=== PATIENT | male | born 1970 | race American Indian/Alaskan Native ===

== ENCOUNTER 2016-06-16 15:57 | Emergency (ER) | payer SELFPAY ==
--- NOTE | 2016-06-16 16:13 | Emergency Department Report ---
Chief Complaint: Dental/Oral Stated Complaint: TOOTHACHE Time Seen by Provider: 06/16/16 16:11 - HPI History of Present Illness: 45 year old male with hx of uncontrolled htn presents with headache and dental pain. states that he gets a lot of throbbing headaches in the past and unsure if related to BP. states that tooth has been hurting for a few days. denies swelling, pus drainage, fever. - Exam Vital Signs: Vital Signs 06/16/16 15:59 Temperature 98.3 F Pulse Rate 80 Respiratory 18 Rate Blood Pressure 167/115 O2 Sat by Pulse 99 Oximetry Physical Exam: BP is elevated dental tenderness to right maxilla. no swelling, pus drainage patient has normal strength, normal gait and coordination,. MSE screening note: Focused history and physical exam performed. Due to findings the following was ordered: ED Disposition for MSE Condition: Stable
[2016-06-16] MEDS ORDERED: CATAPRES PO ONE (16:33)
[2016-06-16 16:36] LABS: Basophils % (Auto) 0.5 % (0.0-1.8); Eosinophils % (Auto) 2.3 % (0.0-4.3); Hemoglobin 13.3 gm/dl (11.8-15.2); Mean Corpuscular HGB Conc 33 % (32-34); Mean Corpuscular Hemoglobin 30 pg (28-32); Mean Corpuscular Volume 91 fl (84-94); Platelet Count 224 K/mm3 (140-440); Red Blood Count 4.41 M/mm3 (3.65-5.03); White Blood Count 6.6 K/mm3 (4.5-11.0)
[2016-06-16 16:47] LABS: INR 0.91 (0.87-1.13)
[2016-06-16 16:48] LABS: Partial Thromboplastin Time 28.7 Sec. (24.2-36.6)
[2016-06-16 17:00] LABS: Alanine Aminotransferase 19 units/L (7-56); Albumin 4.3 g/dL (3.9-5); Albumin/Globulin Ratio 1.5 %; Alkaline Phosphatase 69 units/L (35-129); Anion Gap 17 mmol/L; Bilirubin,Total < 0.2 mg/dL (0.1-1.2); Blood Urea Nitrogen 14 mg/dL (9-20); Carbon Dioxide 24 mmol/L (22-30); Chloride 99.7 mmol/L (98-107); Glucose 99 mg/dL (75-100); Potassium 3.9 mmol/L (3.6-5.0); Sodium 137 mmol/L (137-145); Total Protein 7.2 g/dL (6.3-8.2)
[2016-06-17] MEDS ORDERED: NORCO 5/325 PO ONE (01:31)
[2016-06-17] MEDS ORDERED: CLEOCIN PO ONE (01:31)
--- NOTE | 2016-06-17 01:36 | Emergency Department Report ---
Addendum entered and electronically signed by MAIRA THAKKAR PA 06/17/16 01 :56: pt requested refill on his amlodipine Original Note: ED ENT HPI - General Chief complaint: Dental/Oral Stated complaint: TOOTHACHE Source: patient Mode of arrival: Ambulatory Limitations: No Limitations - History of Present Illness Initial comments: 45-year-old male past medical history hypertension presents with complaint of one week of worsening right upper tooth pain, history of severe dental caries. Patient speaking in full sentences denies any shortness of breath denies any fever or chills denies any blood or pus drainage from mouth. States he knows he has had severe dental caries for some time but has not had it addressed by a dentist yet. MD complaint: tooth pain Onset/Timin -: week(s) Location: tooth # (4 upper premolar) Severity scale (0 -10): 9 Quality: sharp Consistency: constant Improves with: NSAID Worsens with: eating - Related Data Previous Rx's Medication Instructions Recorded Last Taken Type Ibuprofen [Motrin] 800 mg PO Q8HR PRN #60 tablet 03/24/15 Unknown Rx Metoclopramide [Reglan TAB] 10 mg PO ACHS #10 tablet 03/24/15 Unknown Rx traMADol [Ultram] 50 mg PO Q6HR PRN #14 tablet 03/24/15 Unknown Rx Benzocaine [Oral Pain Relief] 9.35 gm MM Q8H #1 gel..gram. 06/17/16 Unknown Rx Chlorhexidine Mouthwash [Peridex] 118 ml MM BID #1 bottle 06/17/16 Unknown Rx Clindamycin [Clindamycin CAP] 300 mg PO Q8H #30 cap 06/17/16 Unknown Rx HYDROcodone/APAP 5-325 [[place] 1 each PO Q8H PRN #15 tablet 06/17/16 Unknown Rx 5/325] Ibuprofen [Motrin] 800 mg PO Q8HR PRN #25 tablet 06/17/16 Unknown Rx Allergies Allergy/AdvReac Type Severity Reaction Status Date / Time No Known Allergies Allergy Unverified 03/24/15 08:53 ED Dental HPI - General Chief complaint: Dental/Oral Stated complaint: TOOTHACHE Source: patient Mode of arrival: Ambulatory Limitations: No Limitations - Related Data Previous Rx's Medication Instructions Recorded Last Taken Type Ibuprofen [Motrin] 800 mg PO Q8HR PRN #60 tablet 03/24/15 Unknown Rx Metoclopramide [Reglan TAB] 10 mg PO ACHS #10 tablet 03/24/15 Unknown Rx traMADol [Ultram] 50 mg PO Q6HR PRN #14 tablet 03/24/15 Unknown Rx Benzocaine [Oral Pain Relief] 9.35 gm MM Q8H #1 gel..gram. 06/17/16 Unknown Rx Chlorhexidine Mouthwash [Peridex] 118 ml MM BID #1 bottle 06/17/16 Unknown Rx Clindamycin [Clindamycin CAP] 300 mg PO Q8H #30 cap 06/17/16 Unknown Rx HYDROcodone/APAP 5-325 [[place] 1 each PO Q8H PRN #15 tablet 06/17/16 Unknown Rx 5/325] Ibuprofen [Motrin] 800 mg PO Q8HR PRN #25 tablet 06/17/16 Unknown Rx Allergies Allergy/AdvReac Type Severity Reaction Status Date / Time No Known Allergies Allergy Unverified 03/24/15 08:53 ED Review of Systems ROS: Stated complaint: TOOTHACHE Other details as noted in HPI Constitutional: denies: chills, fever Eyes: denies: eye pain, eye discharge, vision change ENT: dental pain. denies: ear pain, throat pain Respiratory: denies: cough, shortness of breath, wheezing Cardiovascular: denies: chest pain, palpitations Endocrine: no symptoms reported Gastrointestinal: denies: abdominal pain, nausea, diarrhea Genitourinary: denies: urgency, dysuria Musculoskeletal: denies: back pain, joint swelling, arthralgia Skin: denies: rash, lesions Neurological: denies: headache, weakness, paresthesias Psychiatric: denies: anxiety, depression Hematological/Lymphatic: denies: easy bleeding, easy bruising ED Past Medical Hx - Past Medical History Previous Medical History?: Yes Additional medical history: TMJ - Surgical History Past Surgical History?: Yes Additional Surgical History: Surgery for TMJ - Social History Smoking Status: Current Every Day Smoker Substance Use Type: Alcohol, Non Opiate Pain - Medications Home Medications: Home Medications Medication Instructions Recorded Confirmed Last Taken Type Ibuprofen [Motrin] 800 mg PO Q8HR PRN #60 tablet 03/24/15 Unknown Rx Metoclopramide [Reglan TAB] 10 mg PO ACHS #10 tablet 03/24/15 Unknown Rx traMADol [Ultram] 50 mg PO Q6HR PRN #14 tablet 03/24/15 Unknown Rx Benzocaine [Oral Pain Relief] 9.35 gm MM Q8H #1 gel..gram. 06/17/16 Unknown Rx Chlorhexidine Mouthwash [Peridex] 118 ml MM BID #1 bottle 06/17/16 Unknown Rx Clindamycin [Clindamycin CAP] 300 mg PO Q8H #30 cap 06/17/16 Unknown Rx HYDROcodone/APAP 5-325 [[place] 1 each PO Q8H PRN #15 tablet 06/17/16 Unknown Rx 5/325] Ibuprofen [Motrin] 800 mg PO Q8HR PRN #25 tablet 06/17/16 Unknown Rx ED Physical Exam - General Limitations: No Limitations General appearance: alert, in no apparent distress - Head Head exam: Present: atraumatic, normocephalic - Eye Eye exam: Present: normal appearance, PERRL, EOMI - ENT ENT exam: Present: mucous membranes moist - Expanded ENT Exam Expanded Teeth exam: Present: dental caries, fractured tooth #, dental tenderness #, other (tooth #4 upper right-sided premolar severe dental caries, overall periodontal disease) - Neck Neck exam: Present: normal inspection - Respiratory Respiratory exam: Present: normal lung sounds bilaterally. Absent: respiratory distress - Cardiovascular Cardiovascular Exam: Present: regular rate, normal rhythm. Absent: systolic murmur, diastolic murmur, rubs, gallop - GI/Abdominal GI/Abdominal exam: Present: soft, normal bowel sounds - Rectal Rectal exam: Present: deferred - Extremities Exam Extremities exam: Present: normal inspection - Back Exam Back exam: Present: normal inspection - Neurological Exam Neurological exam: Present: alert, oriented X3 - Psychiatric Psychiatric exam: Present: normal affect, normal mood - Skin Skin exam: Present: warm, dry, intact, normal color. Absent: rash ED Course Vital Signs 06/16/16 06/16/16 06/16/16 15:59 16:55 18:32 Temperature 98.3 F Pulse Rate 80 80 78 Respiratory 18 18 Rate Blood Pressure 167/115 167/115 153/106 O2 Sat by Pulse 99 Oximetry 06/16/16 06/16/16 20:06 22:54 Temperature 97.8 F 98.1 F Pulse Rate 76 81 Respiratory 18 18 Rate Blood Pressure 154/104 156/104 O2 Sat by Pulse 100 100 Oximetry ED Medical Decision Making - Lab Data Result diagrams: 06/16/16 16:20 06/16/16 16:20 - Medical Decision Making A/P: Dental caries, toothache 1-Peridex mouthwash, clindamycin by mouth x 10 days, [place], Motrin 2-I advised patient to follow up BERNADINE with a dentist as he will likely require root canal and or some instrumentation of multiple teeth especially right upper premolar region 3-no evidence of dental abscess at this time I advised patient to return to the ED if he experiences significant pus drainage or bleeding from mouth with difficulty swallowing or shortness of breath, severe fever or chills Critical care attestation.: If time is entered above; I have spent that time in minutes in the direct care of this critically ill patient, excluding procedure time. ED Disposition Clinical Impression: Dental caries Disposition: DISCHARGED TO HOME OR SELFCARE Is pt being admited?: No Does the pt Need Aspirin: No Condition: Stable Instructions: Toothache (ED), Dental Caries (ED) Prescriptions: Clindamycin [Clindamycin CAP] 300 mg PO Q8H #30 cap Ibuprofen [Motrin] 800 mg PO Q8HR PRN #25 tablet PRN Reason: Pain HYDROcodone/APAP 5-325 [[place] 5/325] 1 each PO Q8H PRN #15 tablet PRN Reason: Pain Benzocaine [Oral Pain Relief] 9.35 gm MM Q8H #1 gel..gram. Chlorhexidine Mouthwash [Peridex] 118 ml MM BID #1 bottle Referrals: PRIMARY CARE, [Primary Care Provider] - 3-5 Days [facility] [Outside] - 3-5 Days [facility] [Outside] - 3-5 Days Time of Disposition: 01:36
[2016-06-17 01:59] VITALS: BP 106/89
== END 2016-06-17 02:01 | disposition home or self-care (01) ==
LOC: ED 15:57
DX: K02.9 Dental caries, unspecified (principal); F17.200 Nicotine dependence, unspecified, uncomplicated
CPT/HCPCS: 36415; 80053; 85025; 85610; 85730; 99283